=== PATIENT | female | born 1990 | race Caucasian/White ===

== ENCOUNTER → 2016-06-06 | Outpatient (REF) | payer MEDICAID, SELFPAY ==
[2016-06-06 13:25] LABS: MEAN CORPUSCULAR HEMOGLOBIN 29.6 pg (27.0-33.0); MEAN CORPUSCULAR VOLUME 89.7 fl (80.0-96.0); RED CELL DISTRIBUTION WIDTH 12.4 % (11.5-14.5); WHITE BLOOD COUNT 12.6 K/mm3 (4.0-10.0)
== END ==
LOC: M LABSMT 12:54
PROVIDERS: ATTEND Advanced Practice Midwife
DX: Z34.82 Encounter for supervision of other normal pregnancy, second trimester (principal)

== ENCOUNTER → 2016-07-30 | Outpatient (REF) | payer SELFPAY | LOC: M LAB REF 12:55 | PROVIDERS: ATTEND Advanced Practice Midwife | DX: Z34.83 Encounter for supervision of other normal pregnancy, third trimester (principal) ==

== ENCOUNTER 2016-08-30 20:53 | Inpatient (IN) | payer OTHER ==
[~2016-08-30] VITALS: Ht 167.6 cm; Wt 105.0 kg
[2016-08-30] VITALS (8 sets, daily range): BP systolic 111–124; BP diastolic 55–68
[2016-08-30] MEDS ORDERED: OXYTOCIN 30 UNITS IN 0.9% NaCl 500ML IV BAG (J2590) As Ordered ONE (21:24)
[2016-08-30] MEDS ORDERED: LACTATED RINGER'S 1000 ML IV STA (22:03)
[2016-08-30] MEDS ORDERED: LR 1,000 ML IV SCH (22:03)
[2016-08-30] MEDS ORDERED: OXYTOCIN DRIP 30 UNITS in APPROPRIATE DILUENT 1 EA IV SCH (22:05)
[2016-08-30] MEDS ORDERED: ACETAMINOPHEN 500 MG TAB PO PRN (22:15)
[2016-08-30] MEDS ORDERED: METHYLERGONOVINE MALEATE 0.2 MG TAB PO PRN (22:15)
[2016-08-30] MEDS ORDERED: MEASLES,MUMPS,RUBELLA VACCINE INJ (MMR-II) (90707) SC SCH (22:15)
[2016-08-30] MEDS ORDERED: DIBUCAINE 1% OINTMENT 30GM TOP PRN (22:15)
[2016-08-30] MEDS ORDERED: ANUSOL HC CREAM 30GM TOP PRN (22:15)
[2016-08-30] MEDS ORDERED: DOCUSATE SODIUM 100 MG CAP PO PRN (22:15)
[2016-08-30] MEDS ORDERED: RHOGAM 300 MCG (1500 IU) INJ (J2790) IM SCH (22:15)
[2016-08-30] MEDS ORDERED: MOM 30ML SUSPENSION UDC PO PRN (22:15)
[2016-08-30] MEDS ORDERED: IBUPROFEN 800 MG TAB PO PRN (22:15)
--- NOTE | 2016-08-30 22:39 | DN ---
DATE: 08/30/2016 DELIVERY NOTE Fully dilated and artificial rupture of membranes for scant amount of clear fluid at 2125, viable female delivered right occiput anterior ([place]A) restituted to right occiput transverse (ROT) at 2141, spontaneous respirations. Transitioned on maternal abdomen. Cord doubly clamped and cut once pulsations ceased. scores 8 and 10. Placenta [place] intact with three-vessel cord at 2147. Fundus firmed with massage and intravenous (IV) Pitocin bolus. Estimated blood loss 100 mL. Perineum intact. weight 7 pounds 13 ounces, 3520 grams. Sponge and instrument count correct. Mom and baby doing well.
--- NOTE | 2016-08-30 22:40 | HPE ---
DATE OF ADMISSION: 08/30/2016 A 26-year-old 2, para 1-0-0-1, estimated date of delivery 08/28/2016, presents at 40 weeks 2 days with reports of contractions through the day, stronger since 1400 hours. Evaluated in the office this morning at 10 o'clock, found to be about 2-3 cm, 80% effaced, -3 at that time. She denies loss of fluid or bleeding. Fetus is active. Last normal menstrual period 07/18/2015 for initial LUIS of 04/23/2016. Sonogram at 6 weeks confirmed the date of 2016. Anatomy scan within normal limits. Appropriate care. OBSTETRICAL HISTORY: 2009: Induction of labor at 38 weeks for oligohydramnios, normal spontaneous vaginal , viable female, 6 pounds 10 ounces. ALLERGIES: She is allergic to PENICILLIN and BACTRIM. MEDICAL/SURGICAL HISTORY: Breast biopsy. Tonsillectomy with adenoidectomy. Abnormal Pap with cryotherapy. FAMILY HISTORY: Family history of cancer and lupus SOCIAL HISTORY: Former smoker. Father of the baby and family present and supportive. Denies alcohol or drugs. Remote history of Chlamydia. OBJECTIVE: Prepregnancy weight 158, total weight gain 72 pounds. O+, antibody negative, rubella immune. VDRL, hepatitis B, hepatitis C, HIV, gonorrhea and Chlamydia all negative. Declined genetic screening. 1-hour glucose 105. Group B strep is positive with sensitivities. Vital signs are stable. She is breathing hard with contractions that are 2-3 minutes apart for 60 seconds and firm. heart is 145, moderate variability with accelerations. Sterile vaginal exam: Rim, 100% and 0 station, cephalic. ASSESSMENT: Multiparous (multip) at term, imminent delivery. PLAN: Admit. Anticipate normal spontaneous vaginal . MTDD
[2016-08-30 23:17] LABS: MEAN CORPUSCULAR HEMOGLOBIN 28.2 pg (27.0-33.0); MEAN CORPUSCULAR HGB CONC 33.1 g/dl (32.0-36.5); MEAN CORPUSCULAR VOLUME 85.2 fl (80.0-96.0); RED CELL DISTRIBUTION WIDTH 13.5 % (11.5-14.5); WHITE BLOOD COUNT 18.9 K/mm3 (4.0-10.0)
[2016-08-31 06:11] VITALS: BP 126/63
[2016-08-31] MEDS: PRENATAL VITAMIN TAB PO SCH (08:31)
[2016-08-31 18:02] VITALS: BP 130/61
[2016-09-01 06:00] VITALS: BP 126/67
[2016-09-01] MEDS: PRENATAL VITAMIN TAB PO SCH (09:25)
[2016-09-01] MEDS ORDERED: PRENTAB9 PO (11:23)
[2016-09-01] MEDS ORDERED: ACET50TA PO (11:23)
[2016-09-01] MEDS ORDERED: IBUP-1114 PO (11:23)
[2016-09-01] MEDS ORDERED: COLA100C3 PO (11:23)
== END 2016-09-01 11:45 | disposition home or self-care (01) | DRG 560 ==
LOC: M LDO 20:53 → M LDI 21:15 → M OBS 23:44
PROVIDERS: ADMIT Advanced Practice Midwife; ATTEND Advanced Practice Midwife
PROC: 10E0XZZ Delivery of Products of Conception, External Approach (ICD-10-PCS; principal; 2016-08-30)
PROC: 10907ZC Drainage of Amniotic Fluid, Therapeutic from Products of Conception, Via Natural or Artificial Opening (ICD-10-PCS; 2016-08-30)
DX: O48.0 Post-term pregnancy (principal); Z88.0 Allergy status to penicillin; Z37.0 Single live birth; Z3A.40 40 weeks gestation of pregnancy; Z88.1 Allergy status to other antibiotic agents; Z87.891 Personal history of nicotine dependence; Z80.9 Family history of malignant neoplasm, unspecified; Z83.2 Family history of diseases of the blood and blood-forming organs and certain disorders involving the immune mechanism

== ENCOUNTER → 2017-01-07 | Outpatient (REF) | payer OTHER, MEDICAID ==
[~2017-01-07] MED LIST: ACET50TA PO; COLA100C5 PO; IBUP-1114 PO; PRENTAB9 PO
== END ==
LOC: M LAB REF 13:11
PROVIDERS: ATTEND Advanced Practice Midwife
DX: Z12.4 Encounter for screening for malignant neoplasm of cervix (principal)

== ENCOUNTER → 2018-10-06 | Outpatient (REF) | payer OTHER, MEDICAID ==
[~2018-10-06] MED LIST changes: -ACET50TA PO; +MAPA500T2 PO
[2018-10-06 15:53] LABS: CHLAMYDIA DNA AMPLIFICATION NEGATIVE (NEGATIVE); GC DNA AMPLIFICATION NEGATIVE (NEGATIVE)
== END ==
LOC: M LAB REF 13:11
PROVIDERS: ATTEND Advanced Practice Midwife
DX: Z11.3 Encounter for screening for infections with a predominantly sexual mode of transmission (principal)